=== PATIENT | female | born 1985 | race Caucasian/White ===

== ENCOUNTER 2017-11-27 12:42 | Emergency (ER) | payer SELFPAY ==
[~2017-11-27] VITALS: Ht 175.3 cm; Wt 68.0 kg
[2017-11-27 12:42] VITALS: BP 130/77; PULSE 125; RESP 20; TEMP 98.7; O2SAT 99
[2017-11-27] MEDS ORDERED: SODIUM CHLOR 0.9% 1000 ML INJ 1,000 ML IV SCH (14:07)
--- NOTE | 2017-11-27 14:10 | PD ---
HPI Chief Complaint: Cold / Flu Symptoms Time Seen by Provider: 13:58 Travel History International Travel<30 days: No Contact w/Intl Traveler<30days: No Traveled to known affect area: No History of Present Illness HPI 32-year-old female presents for evaluation. The past 2 days she has had myalgias, chills, sore throat, cough, bilateral ear pressure, nausea and vomiting. Symptoms are moderate, no aggravating or alleviating factors. Denies abdominal pain, diarrhea, rash, recent travel, dysuria, flank pain. No sick contacts. No other complaints at this time. [facility] Past Medical History Medical History: Denies Significant Hx Influenza Vaccination: No ?: Unknown LMP: on depo Past Surgical History Section: Yes Tonsillectomy: Yes Other Surgery: Yes (BREAST AUGMENTATION, CYST REMOVED FROM BREAST) Social History Alcohol Use: No Tobacco Use: Yes Substance Use: No Allergies-Medications (Allergen,Severity, Reaction): Coded Allergies: penicillin G (Verified Allergy, Unknown, 11/27/17) Reported Meds & Prescriptions Reported Meds & Active Scripts Active Zofran (Ondansetron HCl) 4 Mg Tab 4 Mg PO Q6HR PRN Review of Systems Except as stated in HPI: all other systems reviewed are Neg Physical Exam Narrative GENERAL: Well-developed well-nourished female in no acute distress SKIN: Warm and dry. HEAD: Atraumatic. Normocephalic. EYES: Pupils equal and round. No scleral icterus. No injection or drainage. ENT: No nasal bleeding or discharge. Mucous membranes pink and moist. Some oral pharyngeal erythema without exudate. NECK: Trachea midline. No JVD. No lymphadenopathy CARDIOVASCULAR: Regular rate and rhythm. No murmur appreciated. RESPIRATORY: No accessory muscle use. Clear to auscultation. Breath sounds equal bilaterally. GASTROINTESTINAL: Abdomen soft, non-tender, nondistended. Hepatic and splenic margins not palpable. MUSCULOSKELETAL: No obvious deformities. No clubbing. No cyanosis. No edema. NEUROLOGICAL: Awake and alert. No obvious cranial nerve deficits. Motor grossly within normal limits. Normal speech. PSYCHIATRIC: Appropriate mood and affect; insight and judgment normal. Data Data Last Documented VS Vital Signs Date Time Temp Pulse Resp B/P (MAP) Pulse Ox O2 Delivery O2 Flow Rate FiO2 11/27/17 15:09 84 18 97 11/27/17 14:11 98.4 Room Air Orders Orders Group A Rapid Strep Screen (11/27/17 12:49) Strep Culture (Group A) (11/27/17 13:05) Complete Blood Count With Diff (11/27/17 14:07) Comprehensive Metabolic Panel (11/27/17 14:07) Iv Access Insert/Monitor (11/27/17 14:07) Ondansetron Inj (Zofran Inj) (11/27/17 14:15) Sodium Chlor 0.9% 1000 Ml Inj (Ns 1000 M (11/27/17 14:07) Ed Urine Pregnancytest Poc (11/27/17 14:07) Influenzae A/B Antigen (11/27/17 14:07) Chest, Single Ap (11/27/17 ) Ketorolac Inj (Toradol Inj) (11/27/17 14:15) Ed Discharge Order (11/27/17 15:09) Labs Laboratory Tests Test 11/27/17 14:20 White Blood Count 13.7 TH/MM3 Red Blood Count 4.27 MIL/MM3 Hemoglobin 14.0 GM/DL Hematocrit 41.3 % Mean Corpuscular Volume 96.6 FL Mean Corpuscular Hemoglobin 32.7 PG Mean Corpuscular Hemoglobin Concent 33.8 % Red Cell Distribution Width 12.6 % Platelet Count 219 TH/MM3 Mean Platelet Volume 8.4 FL Neutrophils (%) (Auto) 86.6 % Lymphocytes (%) (Auto) 5.1 % Monocytes (%) (Auto) 7.7 % Eosinophils (%) (Auto) 0.1 % Basophils (%) (Auto) 0.5 % Neutrophils # (Auto) 11.8 TH/MM3 Lymphocytes # (Auto) 0.7 TH/MM3 Monocytes # (Auto) 1.1 TH/MM3 Eosinophils # (Auto) 0.0 TH/MM3 Basophils # (Auto) 0.1 TH/MM3 CBC Comment DIFF FINAL Differential Comment Blood Urea Nitrogen 10 MG/DL Creatinine 0.96 MG/DL Random Glucose 116 MG/DL Total Protein 7.6 GM/DL Albumin 3.9 GM/DL Calcium Level 9.0 MG/DL Alkaline Phosphatase 80 U/L Aspartate Amino Transf (AST/SGOT) 11 U/L Alanine Aminotransferase (ALT/SGPT) 18 U/L Total Bilirubin 0.3 MG/DL Sodium Level 138 MEQ/L Potassium Level 3.7 MEQ/L Chloride Level 105 MEQ/L Carbon Dioxide Level 25.3 MEQ/L Anion Gap 8 MEQ/L Estimat Glomerular Filtration Rate 68 ML/MIN MDM Medical Decision Making Medical Screen Exam Complete: Yes Emergency Medical Condition: Yes Medical Record Reviewed: Yes Differential Diagnosis Influenza, eustachian tube dysfunction, tonsillitis, pharyngitis, gastroenteritis, pneumonia, bronchitis Narrative Course 32-year-old female with 2 days of cough, congestion, nausea, vomiting, ear pressure. Her abdomen is soft and nontender. She is tachycardic, likely secondary to low-grade fever. The patient will be given IV fluids, Zofran, Toradol. Plan is for lab work, chest x-ray, influenza antigen, rapid strep screen. CBC reveals WBC count of 13.7, CMP is unremarkable, urine test is negative, influenza antigen rapid strep screen is negative. Chest x-ray is normal. Upon examination the patient feels improved, her pulse is improved, suspect viral upper respiratory infection. The patient be discharged with a short course of Zofran. Diagnosis Primary Impression: Viral syndrome Additional Instructions: Zofran for nausea. Stay well hydrated well-nourished. Take Tylenol or Motrin for fever and body ache per dosing instructions on the bottle. Follow-up with primary care physician as needed and return for any emergent medical conditions. Med/Other Pt SpecificInfo: Prescription(s) given Scripts Ondansetron (Zofran) 4 Mg Tab 4 MG PO Q6HR Y for NAUSEA OR VOMITING, #20 TAB 0 Refills Prov: Eliazar Cevallos MD 11/27/17 Disposition: 01 DISCHARGE HOME Condition: Stable Rip Ryan Nov 27, 2017 14:10
[2017-11-27 14:11] VITALS: BP 127/71; PULSE 76; RESP 19; TEMP 98.4; O2SAT 98
[2017-11-27] MEDS ORDERED: ONDANSETRON HCL 4 MG/2 ML VIAL IVP ONE (14:15)
[2017-11-27] MEDS ORDERED: KETOROLAC TROMETHAMINE 30 MG/ML (IVP) VIAL IV PUSH ONE (14:15)
--- NOTE | 2017-11-27 14:40 | RADRPT ---
EXAM DATE/TIME: 11/27/2017 14:17 [place] COMPARISON: No previous studies available for comparison. INDICATIONS : Vomiting and "flu" symptoms for 1 day . MEDICAL HISTORY : None. SURGICAL HISTORY : None. ENCOUNTER: Initial ACUITY: 2 days PAIN SCORE: 6/10 LOCATION: Bilateral all over FINDINGS: A single view of the chest demonstrates the lungs to be symmetrically aerated without evidence of mas s, infiltrate or effusion. The cardiomediastinal contours are unremarkable. Osseous structures are intact. CONCLUSION: No acute disease. Luciano Eid MD FACR on November 27, 2017 at 14:37 Board Certified Radiologist. This report was verified electronically.
[2017-11-27 14:41] LABS: AUTOMATED NEUTROPHIL # 11.8 TH/MM3 (1.8-7.7); BASOPHIL # 0.1 TH/MM3 (0-0.2); BASOPHIL % 0.5 % (0.0-2.0); EOSINOPHIL % 0.1 % (0.0-4.0); HEMATOCRIT 41.3 % (35.0-46.0); LYMPH % 5.1 % (9.0-44.0); LYMPHOCYTE # 0.7 TH/MM3 (1.0-4.8); MEAN CELL VOLUME 96.6 FL (80.0-100.0); MEAN CORPUSCULAR HEMOGLOBIN 32.7 PG (27.0-34.0); MEAN CORPUSCULAR HGB CONC 33.8 % (32.0-36.0); MEAN PLATELET VOLUME 8.4 FL (7.0-11.0); MONO % 7.7 % (0.0-8.0); MONOCYTE # 1.1 TH/MM3 (0-0.9); NEUT % 86.6 % (16.0-70.0); PLATELET COUNT 219 TH/MM3 (150-450); RED BLOOD COUNT 4.27 MIL/MM3 (4.00-5.30); RED CELL DISTRIBUTION WIDTH 12.6 % (11.6-17.2); WHITE BLOOD COUNT 13.7 TH/MM3 (4.0-11.0)
[2017-11-27 14:52] LABS: ALBUMIN 3.9 GM/DL (3.4-5.0); ALT (GPT) 18 U/L (10-53); AST (GOT) 11 U/L (15-37); BICARBONATE 25.3 MEQ/L (21.0-32.0); BLOOD UREA NITROGEN 10 MG/DL (7-18); CHLORIDE 105 MEQ/L (98-107); CREATININE 0.96 MG/DL (0.50-1.00); GLOMERULAR FILTRATION RATE 68 ML/MIN (>89); GLUCOSE,RANDOM 116 MG/DL (74-106); SODIUM (NA) 138 MEQ/L (136-145)
[2017-11-27 14:54] LABS: ALKALINE PHOSPHATASE 80 U/L (45-117); TOTAL BILIRUBIN ADULT 0.3 MG/DL (0.2-1.0); TOTAL PROTEIN 7.6 GM/DL (6.4-8.2)
[2017-11-27 15:09] VITALS: PULSE 84; RESP 18; O2SAT 97
[2017-11-27] MEDS ORDERED: ZOFR4TAB PO (15:10)
[2017-11-27 15:30] VITALS: BP 120/77; RESP 16; TEMP 98
== END 2017-11-27 15:30 | disposition home or self-care (01) ==
LOC: NEPE 12:42
DX: B34.9 Viral infection, unspecified (principal); Z72.0 Tobacco use
CPT/HCPCS: 71045; 80053; 84703; 85025; 87081; 87804; 87880; 96361; 96374; 96375; 99284; J1885; J2405; J7030